=== PATIENT | female | born 1970 | race Caucasian/White ===

== ENCOUNTER → 2017-09-11 | Outpatient (CLI) | payer MEDICAID ==
[~2017-09-11] MED LIST: AMITRIPTYLINE 225 MG PO; AMOXICILLIN 50500 MG PO; AMOXIL500 M1 PO; AMOXIL500 MG PO; APAP/BUTALBITAL1 TA1 PO; BUSPAR 10MG TAB10 MG PO; CIPRO 500MG TA500 MG PO; DARVOCET-N 1001 EACH PO; HYDROCODONE-APA1 TA1 PO; IBU-8800 MG PO; IBUPROFEN600 MG PO; LORTAB 5/500 501 TAB PO; NAPROSYN 500MG500 MG PO; NOMEDS *; Oxycodone5 MG PO; PAROXETINE HCL20 MG PO; PEN-VK500 MG PO; PENICILLIN-VK500 MG PO; PERCOCET 5/3251 EACH PO; PREDNISONE; PREDNISONE 20MG20 MG PO; TESSALON PERLE100 MG PO; Tramadol HCl50 MG PO; VOLTAREN75 MG PO; ZOFRAN ODT4 MG PO
[2017-09-11 18:12] LABS: HEMOGLOBIN 15.5 g/dL (12.2-16.2)
[2017-09-11 18:42] LABS: BUN 12 mg/dL (7-18)
[2017-09-11 18:52] LABS: GFR (ESTIMATED) 77 ML/MIN (59-)
[2017-09-13 09:41] LABS: Vitamin B12 531 pg/mL (211-946)
[2017-09-13 16:35] LABS: HBsAg Screen Negative (Negative); Hep A Ab, IgM Negative (Negative); Hep B Core Ab, IgM Negative (Negative); Hep C Virus Ab <0.1 (0.0-0.9)
[2017-09-18 03:37] LABS: 1,25-Dihydroxy, Vitamin D-2 <10 pg/mL (.); 1,25-Dihydroxy, Vitamin D-3 117 pg/mL (.); Total 1,25-Dihydroxy,Vitamin D 117 pg/mL (.)
== END ==
LOC: LAB 17:31
PROVIDERS: Nurse Practitioner Family
DX: R63.4 Abnormal weight loss (principal); G62.9 Polyneuropathy, unspecified; Z79.899 Other long term (current) drug therapy; Z00.00 Encounter for general adult medical examination without abnormal findings